=== PATIENT | female | born 1980 | race Caucasian/White ===

== ENCOUNTER → 2019-09-14 | Outpatient (CLI) | payer OTHER ==
[2015-03-12 15:39] VITALS: BP 110/70
[~2019-09-14] MED LIST: BUSP15TA PO; CHOL200059 PO; DEXM2.5T PO; DEXM40CP PO; DOCU-153 PO; ESTR0.45 PO; FLUO40CA2 PO; HYDR-2761 PO; HYDR-3164 PO; IBUP-1060 PO; LAMO150T4 PO; LAMO25TA9 PO; LEVO5TAB29 PO; METF10007 PO; METF500T16 PO; NAPR-683 PO; OMEG10005 PO; ONDA4TAB12 PO; PHEN37.5 PO; prometrium TOP
== END | disposition home or self-care (01) ==
LOC: LAB 13:06
PROVIDERS: ATTEND Surgery
DX: Z01.818 Encounter for other preprocedural examination (principal); Z11.59 Encounter for screening for other viral diseases; R10.31 Right lower quadrant pain
CPT/HCPCS: C9803; U0003

== ENCOUNTER 2019-09-18 07:44 | Observation (INO) | payer OTHER ==
[~2019-09-18] VITALS: Ht 160 cm; Wt 65.5 kg
[~2019-09-18 07:44] MED LIST changes: +BUPIVACAINE-EPI 0.5%-1:200000 MPF 30 ML VIAL. ONE; -DOCU-153 PO; -HYDR-2761 PO; +IV RINGERS,LACTATED 1000ML 1,000 ML IV SCH; +ONDANSETRON PF 4 MG/2 ML VIAL. IV PRN; +PROCHLORPERAZINE 10 MG/2 ML VIAL. IV PRN; +cefOXitin SODIUM IV Push 2 GM VIAL. IVP ONE; +fentaNYL PF VIAL 100 MCG/2 ML VIAL IV PRN
[2019-09-18] MEDS ORDERED: LIDOCAINE 1% PF 5 ML VIAL. ONE (08:12)
[2019-09-18] MEDS ORDERED: PROPOFOL 10 MG/ML (20ML) VIAL. IV ONE (08:12)
[2019-09-18] MEDS ORDERED: ROCURONIUM 50 MG/5 ML VIAL. ONE (08:12)
[2019-09-18] MEDS ORDERED: fentaNYL PF VIAL 100 MCG/2 ML VIAL ONE ×2 (08:13→10:59)
[2019-09-18] MEDS ORDERED: MIDAZOLAM HCL/PF 2 MG/2 ML VIAL. ONE (08:13)
--- NOTE | 2019-09-18 09:46 | PDOC ---
SURGICAL PROGRESS NOTE Subjective Pre-Op Note 39 yo F with recurrent problems with RLQ abd pain. TO OR for laparoscopic versus open exploration, appendectomy. R/R/B/A d/w pt and pt's supportive . Risks, including, but not limited to: bleeding, infection, damage to surrounding structures, risk of anesthesia, risk of open, risk of , risk of not addressing her symptoms. They appear to understand, their questions are answered and they elect to proceed. Office note H&P reviewed and unchanged. Vital Signs Vital Signs Date Time Temp Pulse Resp B/P (MAP) Pulse Ox O2 Delivery O2 Flow Rate FiO2 09/18/19 08:12 97.6 102 20 135/83 100 Room Air 97.6 Labs Laboratory Tests Test 09/18/19 08:06 09/18/19 08:17 Bedside Urine HCG, Qualitative Hcg negative (Negative) Glucose (Fingerstick) 82 mg/dL (70-99) Laboratory Tests Test 09/18/19 08:06 09/18/19 08:17 Bedside Urine HCG, Qualitative Hcg negative (Negative) Glucose (Fingerstick) 82 mg/dL (70-99) Justicifation of Admission Dx: Justifications for Admission: Justification of Admission Dx: N/A QUIQUE HUNTLEY MD Sep 18, 2019 09:45
[2019-09-18] MEDS ORDERED: NEOSTIGMINE METHYLSULFATE 5 MG/5 ML SYRINGE. ONE (10:25)
[2019-09-18] MEDS ORDERED: GLYCOPYRROLATE 1 MG/5 ML VIAL. ONE (10:25)
[2019-09-18] MEDS ORDERED: KETOROLAC 30 MG/ML VIAL. ONE (10:44)
[2019-09-18] MEDS ORDERED: HYDROcodone/APAP 5/325MG 1 TAB TABLET PO ONE (10:45)
[2019-09-18] MEDS: fentaNYL PF VIAL 100 MCG/2 ML VIAL IV PRN ×2 (11:02→11:12)
[2019-09-18] MEDS ORDERED: ONDANSETRON PF 4 MG/2 ML VIAL. IVP PRN (12:00)
[2019-09-18] MEDS ORDERED: 0.9 % SODIUM CHLORIDE 10 ML DISP.SYRIN. IV PRN (12:00)
[2019-09-18] MEDS ORDERED: KETOROLAC 30 MG/ML VIAL. IV PRN (12:00)
[2019-09-18] MEDS ORDERED: NALOXONE 0.4 MG/ML VIAL. IV PRN (12:00)
[2019-09-18] MEDS: IV RINGERS,LACTATED 1000ML 1,000 ML IV SCH ×2 (12:00→22:00)
[2019-09-18] MEDS ORDERED: DEXTROSE 50% 25 GM / 50ML DISP.SYRIN. IV PRN (12:00)
[2019-09-18] MEDS: IV NORMAL SALINE 1000ML BAG 1,000 ML IV SCH (13:43)
[2019-09-18 13:49] VITALS: BP 93/64
[2019-09-18 14:04] VITALS: BP 96/61
[2019-09-18 14:19] VITALS: BP 106/59
[2019-09-18 14:34] VITALS: BP 112/72
[2019-09-18] MEDS: BENZOCAINE/MENTHOL LOZENGE. PO PRN ×2 (15:28→21:46)
[2019-09-18] MEDS: HYDROcodone/APAP 5/325MG 1 TAB TABLET PO PRN (17:26)
[2019-09-18 19:00] VITALS: BP 112/68
--- NOTE | 2019-09-18 19:25 | PDOC4 ---
OPERATIVE NOTE Date: Date: Sep 18, 2019 Pre-Op Diagnosis: RLQ abd pain Post-Op Diagnosis: same, diverticulosis, redundant sigmoid colon Procedure Performed: laparoscopic exploration and appendectomy Surgeon: Yasir Huntley Anesthesia Type: GETA plus local Blood Loss: minimal Specimans Obtained: appendix Findings: redundant sigmoid colon with diverticulosis, normal appendix, gallbladder surgically absent, grossly normal appendix, normal small bowel (run from terminal ileum to ligament of treitz), normal liver, normal stomach, no hernia, no adhesions, normal uterus and ovaries, normal right, transverse colon, but redundant sigmoid with diverticulosis Complications: none Operative Note: After obtaining informed consent, patient was taken to OR, induced under GETA and prepped in the usual fashion. 5 mm ports placed LLQ and suprapubic, 12 port placed umbilical, all under laparoscopic guidance. The abdominal cavity was explored and noted as above. Per patient request, colon was not addressed at this time, although would favor as source of pain. Also, grossly normal appendix is removed as potential source of occult pain. Appendix grasped and amputated at base with ESTRADA stapler. Mesoappendix ligated with vascular load. Additional hemostasis obtained with clips. Appendix was placed in bag, delivered and sent to pathology. Copious irrigation. No evidence of bleeding or other pathology. Ports removed without bleeding. Fascia repaired with 0 vicryl. Skin repaired with 4 0 monocryl. Dressing placed. Patient tolerated procedure well and sent to PACU in stable condition. All counts correct. QUIQUE HUNTLEY MD Sep 18, 2019 19:25
[2019-09-18] MEDS: DOCUSATE SODIUM 100 MG CAPSULE. PO SCH (21:42)
[2019-09-18 23:00] VITALS: BP 100/63
[2019-09-19 03:00] VITALS: BP 110/72
[2019-09-19 07:00] VITALS: BP 102/70
[2019-09-19] MEDS: IV RINGERS,LACTATED 1000ML 1,000 ML IV SCH (08:00)
[2019-09-19] MEDS: DOCUSATE SODIUM 100 MG CAPSULE. PO SCH (08:51)
[2019-09-19] MEDS: IV NORMAL SALINE 1000ML BAG 1,000 ML IV SCH ×2 (08:58→11:37)
[2019-09-19] MEDS: HYDROcodone/APAP 5/325MG 1 TAB TABLET PO PRN (08:58)
[2019-09-19 11:00] VITALS: BP 115/73
--- NOTE | 2019-09-19 12:08 | NUR ---
SW following. Discussed with RN, pt from home, lap appy yesterday. RN advised no SW needs at this time, anticipates possible discharge home today with self care. SW will continue to follow, should any discharge needs arise.
[2019-09-19] MEDS ORDERED: DOCU-153 PO (12:50)
[2019-09-19] MEDS ORDERED: HYDR-2761 PO (12:50)
--- NOTE | 2019-09-19 12:51 | PDOC3 ---
Discharge Summary Visit Information Date of Admission: Sep 18, 2019 Date of Discharge: Sep 19, 2019 Admitting Diagnosis: RLQ abd pain Brief Hospital Course Allergies Allergies Coded Allergies Type Severity Reaction Last Updated Verified morphine Allergy Intermediate Itching 09/18/19 Yes sulfamethoxazole Allergy Intermediate Hives 09/18/19 Yes trimethoprim Allergy Intermediate Hives 09/18/19 Yes Sulfa (Sulfonamide Antibiotics) Allergy Unknown Hives 09/18/19 Yes Vital Signs Vital Signs Date Time Temp Pulse Resp B/P (MAP) Pulse Ox O2 Delivery O2 Flow Rate FiO2 09/19/19 11:00 97.9 79 18 115/73 (87) 96 Room Air 97.9 09/18/19 11:40 4 Lab Results Laboratory Tests Test 09/18/19 08:06 09/18/19 08:17 09/18/19 10:45 09/19/19 07:38 Bedside Urine HCG, Qualitative Hcg negative (Negative) Glucose (Fingerstick) 82 mg/dL (70-99) 98 mg/dL (70-99) 89 mg/dL (70-99) Test 09/19/19 11:30 Glucose (Fingerstick) 92 mg/dL (70-99) Laboratory Tests Test 09/19/19 07:38 09/19/19 11:30 Glucose (Fingerstick) 89 mg/dL (70-99) 92 mg/dL (70-99) Brief Hospital Course Ms. Villegas is a 39 old F who presented with RLQ abd pain. She underwent laparoscopic exploration and appendectomy. POD #1 doing well and requests d/c home. Discharge Information Condition at Discharge: Stable Follow Up: Weeks Disposition/Orders: D/C to Home Scheduled Buspirone Hcl (Buspirone Hcl) 15 Mg Tablet, 15 MG PO BID for mental health, (Reported) takes one tablet in the AM and two in the PM Entered as Reported by: JOSE ROSE on 03/11/154 Last Taken: Unknown Dose on 09/18/19 0600 Last Action: Last Taken Edited on 09/18/19 0808 by Lenka García Cholecalciferol (Vitamin D3) (Vitamin D-3) 2,000 Unit Tablet, 10,000 UNIT PO DAILY for supplement, (Reported) Entered as Reported by: JOSE ROSE on 03/11/15 1314 Last Action: Edited on 09/17/191505 by MICHAEL DEAN Dexmethylphenidate Hcl (Focalin Xr) 40 Mg Cpmp.50.50, 40 MG PO DAILY, (Reported) Entered as Reported by: JOSE ROSE on 03/11/15 1314 Last Taken: Unknown Dose on 09/18/19 0600 Last Action: Last Taken Edited on 09/18/19807 by Lenka García Lamotrigine (Lamotrigine) 25 Mg Tablet, 25 MG PO BID, (Reported) Entered as Reported by: JOSE ROSE on 03/11/15 1305 Last Taken: Unknown Dose on 09/18/19 06 Last Action: Last Taken Edited on 09/18/19807 by Lenka García Levocetirizine Dihydrochloride (Xyzal) 5 Mg Tablet, 5 MG PO DAILY for allergies, (Reported) Entered as Reported by: MICHAEL DEAN on 09/17/191505 Last Action: New Order on 09/17/191505 by MICHAEL DEAN Metformin Hcl (Metformin Hcl) 500 Mg Tablet, 500 MG PO BIDWMEALS for ANTI- DIABETIC, Ref 0 (Reported) Entered as Reported by: MICHAEL DEAN on 09/17/191503 Last Taken: Unknown Dose on 09/18/19599 Last Action: Last Taken Edited on 09/18/19807 by Lenka García [place]-3 Fatty Acids ([place]-3) 1,000 Mg Capsule, 1,000 MG PO TID, (Reported) Entered as Reported by: JOSE ROSE on 03/11/15 1314 Last Action: Reviewed on 09/17/191457 by MICHAEL DEAN Ondansetron (Ondansetron Odt) 4 Mg Tab.rapdis, 1 TAB PO PRN Q6-8HRS for nausea, #16 (Reported) Entered as Reported by: MICHAEL DEAN on 09/17/191504 Last Action: New Order on 09/17/191504 by MICHAEL DEAN Scheduled PRN Ibuprofen (Ibuprofen) 800 Mg Tablet, 800 MG PO TID PRN for INFLAMMATION, (Reported) Entered as Reported by: MICHAEL DEAN on 09/17/191457 Last Action: New Order on 09/17/191457 by MICHAEL DEAN Discontinued Medications Estrogens, Conjugated (Premarin) 0.45 Mg Tablet, 0.45 MG PO DAILY, (Reported) Entered as Reported by: JOSE ROSE on 03/11/15 1314 Last Action: Discontinued on 09/17/19 1504 by MICHAEL DEAN Phentermine Hcl (Phentermine Hcl) 37.5 Mg Tablet, 1 TAB PO DAILY, #30 Ref 2 (Reported) Entered as Reported by: TRAVON ZUNIGA on 10/05/13 0818 Last Action: Discontinued on 09/17/19 1458 by MICHAEL DEAN [prometrium] , 40 MG TOP HS, (Reported) Entered as Reported by: JOSE ROSE on 03/11/15 131 Last Action: Discontinued on 09/17/19 1507 by MICHAEL DEAN Justicifation of Admission Dx: Justifications for Admission: Justification of Admission Dx: N/A QUIQUE HUNTLEY MD Sep 19, 2019 12:51
--- NOTE | 2019-09-19 14:15 | NUR ---
Discharge Note: RUBY METZGER [place] Discharge instructions and discharge home medications reviewed with Patient and a copy given. All questions have been answered and understanding verbalized. The following instructions and handouts were given: F/U with Dr. Doss in 2 weeks. No Heavy Lifting. May remove dressing and shower on 09/20/2019. Diet as tolerated. Discontinued lines and drains: Peripheral IV intact. Patient discharged to Home or Self Care with Family Member via Wheelchair
--- NOTE | 2019-09-20 18:06 | PATHOLOGY ---
[facility] Accession Number: [id number] . 01 Material submitted: . appendix - APPENDIX . 01 Clinical history: . Right lower quadrant abdominal pain . 02 Diagnosis: Appendix, appendectomy: - Submucosal fatty infiltration. See comment. (JPM:alvino; 09/20/2019) [facility] [place] [place] 09/20/2019 1011 Local . 02 Comment: The entire appendix is submitted for histologic evaluation. The appendiceal mucosa is intact. There is submucosal fatty infiltration. There is no acute inflammatory cell infiltrate identified within the appendiceal mucosa or fibromuscular wall. There is no evidence of malignancy. (JPM:alvino; 09/20/2019) . 02 Electronically signed: . Luis Enrique Quintana MD, Pathologist NPI- [id number] . 01 Gross description: . The specimen is received in formalin, labeled "Dasha Villegas, appendix". Received is a vermiform appendix measuring 4.8 cm in length by up to 0.8 cm in diameter with a moderate amount of attached mesoappendix. The serosal surface is pale hill in appearance with minimal vasculature. The surgical margin is closed with a line of gee. The gee are removed and the new margin is inked black. Sectioning reveals a patent lumen filled with a slight amount of fecal material. The specimen is submitted entirely as follows: . A1 proximal margin and bisected tip A2-A3 remainder of appendix mid proximal to distal aspects. (CAA; 09/19/2019) QAC/QAC 09/19/2019 1034 Local . 02 Pathologist provided ICD-10: K38.9 . 02 CPT . 591184 Specimen Comment: A courtesy copy of this report has been sent to [phone], [phone] Specimen Comment: [id number] Specimen Comment: Report sent to / DR BELLO Performed at: [facility] [address], [place] [id number] MD Jose Lundberg MD Phone: [phone] Performed at: [facility] [address] [place], [place] [id number] MD Luis Enrique Quintana MD Phone: [phone]
== END 2019-09-19 14:15 | disposition home or self-care (01) ==
LOC: SURG 07:44 → 5 NORTH 12:00
PROVIDERS: ADMIT Surgery; ATTEND Surgery
DX: K57.30 Diverticulosis of large intestine without perforation or abscess without bleeding (principal); Z88.2 Allergy status to sulfonamides; Z88.5 Allergy status to narcotic agent
CPT/HCPCS: 44970; 81025; 82962; G0378; G0379; J0694; J0780; J1885; J2250; J2704; J2710; J3010; J3490; J7030; J7120; 88304; 96374; A7015